=== PATIENT | female | born 1945 | race Caucasian/White ===

== ENCOUNTER 2017-12-17 16:52 | Emergency (ER) | payer MEDICARE ==
[~2017-12-17] VITALS: Ht 154.9 cm; Wt 74.8 kg
[~2017-12-17 16:52] MED LIST: ASPI81TA44 PO; ATOR10TA60 PO; LISI-334 PO; MECL25TA PO; NIFE60TA16 PO; unknown BP med
--- NOTE | 2017-12-17 17:32 | ED.ADGEN ---
Past History Past Medical History: Diabetes, Gallstones, High Cholesterol, Hypertension, Other Past Surgical History: Appendectomy, Cholecystectomy Alcohol Use: None Drug Use: None Adult General Chief Complaint Chief Complaint " I got this chest pain here.. I ve had it off and on past month or so... " HPI HPI Patient is a 72 year old female who presents with above hx and complaints of Rib pain. Patient denies any trauma. Patient denies any travel. Patient denies any specific ill contacts. No recent cough. Pain appears to be reproducible on anterior lower anterior axillary lines with palpation.. No spleen or liver tenderness. Patient normally follows with Dr. Prasad. No recent travel. No history of blood clots or DVTs. Patient does have a history of diabetes and hypertension. Review of Systems Review of Systems Constitutional: Denies fever or chills [] Eyes: Denies change in visual acuity, redness, or eye pain [] HENT: Denies nasal congestion or sore throat [] Respiratory: Denies cough or shortness of breath []complaints of chest wall tenderness Cardiovascular: No additional information not addressed in HPI [] GI: Denies abdominal pain, nausea, vomiting, bloody stools or diarrhea [] : Denies dysuria or hematuria [] Musculoskeletal: Denies back pain or joint pain [] Integument: Denies rash or skin lesions [] Neurologic: Denies headache, focal weakness or sensory changes [] Endocrine: Denies polyuria or polydipsia [] All other systems were reviewed and found to be within normal limits, except as documented in this note. Family History Family History Noncontributory diabetes and hypertension Current Medications Current Medications Current Medications Medications (Trade) Dose Ordered Sig/Braden Start Time Stop Time Status Last Admin Dose Admin Aspirin (Children'S Aspirin) 324 mg 1X ONCE 12/17/17 18:15 12/17/17 19:36 DC Sodium Chloride 1,000 ml @ 1,000 mls/hr Q1H 12/17/17 18:15 12/17/17 19:14 DC 12/17/17 18:57 1,000 MLS/HR See nursing for home meds Allergies Allergies Allergies Coded Allergies Type Severity Reaction Last Updated Verified No Known Drug Allergies 10/25/16 No Physical Exam Physical Exam Constitutional: \\, no acute distress, non-toxic appearance. [] HENT: Normocephalic, atraumatic, bilateral external ears normal, oropharynx moist, no oral exudates, nose normal. Fever blister on right lower lip. Eyes: PERRLA, EOMI, conjunctiva normal, no discharge. [] Glasses Neck: Normal range of motion, no tenderness, supple, no stridor. [] Cardiovascular:Heart rate regular rhythm, no murmur [] Lungs & Thorax: Bilateral breath sounds equal at apexes on auscultation [Has the minimal chest wall tenderness anterior axillary line bilaterally . History of present illness Abdomen: Bowel sounds normal, soft, no tenderness, no masses, no pulsatile masses. [] Old surgery scars. Skin: Warm, dry, no erythema, no rash. [] Back: No tenderness, no CVA tenderness. [] Extremities: No tenderness, no cyanosis, no clubbing, ROM intact, no edema. No cording in legs Neurologic: Alert and oriented X 3, normal motor function, normal sensory function, no focal deficits noted. [] Psychologic: Affect anxious, judgement normal, mood normal. [] Current Patient Data Vital Signs Vital Signs Date Time Temp Pulse Resp B/P (MAP) Pulse Ox O2 Delivery O2 Flow Rate FiO2 12/17/17 17:25 98.7 97 22 99 Room Air Lab Results Laboratory Tests Test 12/17/17 17:59 12/17/17 18:00 12/17/17 18:50 12/17/17 19:45 Urine Collection Type Unknown Urine Color Yellow Urine Clarity Hazy Urine pH 5.0 Urine Specific [place] 1.020 Urine Protein 30 mg/dl (NEG-TRACE) Urine Glucose (UA) >=1000 mg/dL (NEG) Urine Ketones (Stick) Neg mg/dL (NEG) Urine Blood Neg (NEG) Urine Nitrite Neg (NEG) Urine Bilirubin Neg (NEG) Urine Urobilinogen Dipstick 0.2 mg/dL (0.2 mg/dL) Urine Leukocyte Esterase Neg (NEG) Urine RBC Occ /HPF (0-2) Urine WBC 1-4 /HPF (0-4) Urine Squamous Epithelial Cells Mod /LPF Urine Bacteria Few /HPF (0-FEW) Urine Mucus Slight /LPF Urine Opiates Screen Neg (NEG) Urine Methadone Screen Neg (NEG) Urine Barbiturates Neg (NEG) Urine Phencyclidine Screen Neg (NEG) Urine Amphetamine/Methamphetamine Neg (NEG) Urine Benzodiazepines Screen Neg (NEG) Urine Cocaine Screen Neg (NEG) Urine Cannabinoids Screen Neg (NEG) Urine Ethyl Alcohol Neg (NEG) White Blood Count 7.5 x10^3/uL (4.0-11.0) Red Blood Count 5.89 x10^6/uL (3.50-5.40) H Hemoglobin 15.8 g/dL (12.0-15.5) H Hematocrit 47.9 % (36.0-47.0) H Mean Corpuscular Volume 81 fL (79-100) Mean Corpuscular Hemoglobin 27 pg (25-35) Mean Corpuscular Hemoglobin Concent 33 g/dL (31-37) Red Cell Distribution Width 13.8 % (11.5-14.5) Platelet Count 255 x10^3/uL (140-400) Neutrophils (%) (Auto) 64 % (31-73) Lymphocytes (%) (Auto) 27 % (24-48) Monocytes (%) (Auto) 7 % (0-9) Eosinophils (%) (Auto) 1 % (0-3) Basophils (%) (Auto) 1 % (0-3) Neutrophils # (Auto) 4.8 x10^3uL (1.8-7.7) Lymphocytes # (Auto) 2.0 x10^3/uL (1.0-4.8) Monocytes # (Auto) 0.6 x10^3/uL (0.0-1.1) Eosinophils # (Auto) 0.1 x10^3/uL (0.0-0.7) Basophils # (Auto) 0.1 x10^3/uL (0.0-0.2) Sodium Level 137 mmol/L (136-145) Potassium Level 4.0 mmol/L (3.5-5.1) Chloride Level 101 mmol/L (98-107) Carbon Dioxide Level 26 mmol/L (21-32) Anion Gap 10 (6-14) Blood Urea Nitrogen 19 mg/dL (7-20) Creatinine 0.9 mg/dL (0.6-1.0) Estimated GFR (Cockcroft-Gault) 61.9 Glucose Level 279 mg/dL (70-99) H Calcium Level 9.4 mg/dL (8.5-10.1) Magnesium Level 1.8 mg/dL (1.8-2.4) Total Bilirubin 0.3 mg/dL (0.2-1.0) Direct Bilirubin 0.1 mg/dL (0.0-0.2) Aspartate Amino Transferase (AST) 27 U/L (15-37) Alanine Aminotransferase (ALT) 24 U/L (14-59) Alkaline Phosphatase 152 U/L (46-116) H Creatine Kinase 30 U/L (26-192) Creatine Kinase MB (Mass) < 0.5 ng/mL (0.0-3.6) Creatine Kinase MB Relative Index 1.7 % (0-4) Troponin I Quantitative < 0.017 ng/mL (0-0.055) LJ-Yby-C-Type Natriuretic Peptide 72 pg/mL (0-124) Total Protein 6.6 g/dL (6.4-8.2) Albumin 3.3 g/dL (3.4-5.0) L Lipase 269 U/L (73-393) Prothrombin Time 10.3 SEC (9.4-11.4) Prothrombin Time INR 1.0 (0.9-1.1) PTT 24 SEC (23-33) D-Dimer (Luz Maria) 0.51 mg/L (0.00-0.50) H EKG EKG I interpretation EKG shows a sinus rhythm at 83 bpm. Some findings consistent with LVH. No findings acute STEMI of contralateral changes in comparison to previous EKG on 11-10-1998 no acute changes[] Radiology/Procedures Radiology/Procedures My interpretation chest today shows no acute cardiopulmonary findings.[] Course & Med Decision Making Course & Med Decision Making Pertinent Labs and Imaging studies reviewed. (See chart for details). Pt. to take daily ASA. Follow up with primary. Return if any concerns. Pt. refuses admit for observation or further work up. Pt. exhibit UCAR capacity. Will follow up. [] Final Impression Final Impression 1. Rib/ Chest pain[] 2. DM 3. HTN Problems: Dragon Disclaimer Dragon Disclaimer This electronic medical record was generated, in whole or in part, using a voice recognition dictation system. CHRISS BRUNO MD Dec 17, 2017 17:32
[2017-12-17] MEDS ORDERED: IV NORMAL SALINE 1,000ML 1,000 ML IV SCH (18:15)
[2017-12-17] MEDS ORDERED: ASPIRIN 81 MG TAB.CHEW PO ONE (18:15)
[2017-12-17 18:19] LABS: BASO # 0.1 x10^3/uL (0.0-0.2); BASO % 1 % (0-3); EOS # 0.1 x10^3/uL (0.0-0.7); EOS % 1 % (0-3); HEMATOCRIT 47.9 % (36.0-47.0); HEMOGLOBIN 15.8 g/dL (12.0-15.5); LYMPH % 27 % (24-48); MEAN CORPUSCULAR HEMOGLOBIN 27 pg (25-35); MEAN CORPUSCULAR HGB CONC 33 g/dL (31-37); MEAN CORPUSCULAR VOLUME 81 fL (79-100); MONO # 0.6 x10^3/uL (0.0-1.1); MONO % 7 % (0-9); NEUT # 4.8 x10^3uL (1.8-7.7); NEUT % 64 % (31-73); PLATELET COUNT 255 x10^3/uL (140-400); RED BLOOD COUNT 5.89 x10^6/uL (3.50-5.40); RED CELL DISTRIBUTION WIDTH 13.8 % (11.5-14.5); WHITE BLOOD COUNT 7.5 x10^3/uL (4.0-11.0)
--- NOTE | 2017-12-17 18:25 | EKG ---
[address] [address] Test Date: 2017-12-17 Test Time: 18:20:05 Pat Name: KASHMIR RAPHAEL Department: Room: Gender: F [employer]: DEISI : 1945 Requested By: CHRISS BRUNO Order Number: [id number] Reading MD: Measurements Intervals [place] Rate: 83 P: 6 DE: 148 QRS: 10 QRSD: 72 T: 170 QT: 346 QTc: 412 Interpretive Statements SINUS RHYTHM LVH WITH REPOLARIZATION ABNORMALITY ABNORMAL ECG RI6.01 No previous ECG available for comparison
[2017-12-17 18:28] LABS: AMPHETAMINE/METHAMPHETAMINE NEG (NEG); BARBITURATES NEG (NEG); BENZODIAZEPINES NEG (NEG); CANNABINOIDS NEG (NEG); COCAINE NEG (NEG); METHADONE NEG (NEG); OPIATES NEG (NEG); PHENCYCLIDINE NEG (NEG)
[2017-12-17 18:39] LABS: BACTERIA,URINE FEW /HPF (0-FEW); BILIRUBIN,URINE NEG (NEG); CLARITY,URINE HAZY; COLOR,URINE YELLOW; GLUCOSE,URINE >=1000 mg/dL (NEG); NITRITE,URINE NEG (NEG); RBC,URINE OCC /HPF (0-2); SQUAMOUS EPITHELIAL CELL,UR MOD /LPF; UROBILINOGEN,URINE 0.2 mg/dL (0.2 mg/dL)
[2017-12-17 19:38] LABS: ALBUMIN 3.3 g/dL (3.4-5.0); ALK PHOS 152 U/L (46-116); ALT (SGPT) 24 U/L (14-59); ANION GAP 10 (6-14); AST (SGOT) 27 U/L (15-37); BLOOD UREA NITROGEN 19 mg/dL (7-20); CALCIUM 9.4 mg/dL (8.5-10.1); CARBON DIOXIDE 26 mmol/L (21-32); CHLORIDE 101 mmol/L (98-107); CREATININE 0.9 mg/dL (0.6-1.0); DIRECT BILIRUBIN 0.1 mg/dL (0.0-0.2); GFR 61.9; GLUCOSE 279 mg/dL (70-99); LIPASE 269 U/L (73-393); MAGNESIUM 1.8 mg/dL (1.8-2.4); SODIUM 137 mmol/L (136-145); TOTAL BILIRUBIN 0.3 mg/dL (0.2-1.0); TOTAL PROTEIN 6.6 g/dL (6.4-8.2)
[2017-12-17 20:30] VITALS: BP 196/82
--- NOTE | 2017-12-18 07:53 | RAD ---
Chest radiograph 12/17/2017 8:10 PM Indication: Chest pain Comparison: Chest radiograph 10/25/2016 Technique: PA and lateral views of the chest are provided. Findings: Cardiomediastinal silhouette is within normal limits. Mild atherosclerotic changes of the thoracic aorta are present. There is a calcified granuloma in the right upper lobe. No pleural effusions, pulmonary vascular congestion or pneumothorax. The lungs are clear. Mild degenerative changes of the thoracic spine are present. Impression: No acute cardiopulmonary process.
== END 2017-12-17 20:40 | disposition home or self-care (01) ==
LOC: ER 16:52
DX: R07.81 Pleurodynia (principal); E11.9 Type 2 diabetes mellitus without complications; E78.00 Pure hypercholesterolemia, unspecified; I10 Essential (primary) hypertension
CPT/HCPCS: 36415; 71046; 80048; 80076; 80307; 81001; 82553; 83690; 83735; 83880; 84443; 84484; 85025; 85379; 85610; 85730; 93005; 96360; 99285-25; G0479; J7030

== ENCOUNTER → 2018-01-17 | Outpatient (CLI) | payer MEDICARE, BC ==
--- NOTE | 2018-01-17 13:56 | RAD ---
Chest, 2 views, 01/17/2018: History: Cough Comparison is made to a study from 12/17/2017. The heart size and pulmonary vascularity are normal. There is calcific plaquing and tortuosity of the thoracic aorta. A calcified granuloma is present in the right upper lobe. No pulmonary infiltrate is seen. There is no evidence of pleural fluid. Moderate spurring is present in the spine. IMPRESSION: 1. Aortic atherosclerosis. 2. No acute cardiopulmonary abnormality is detected.
== END | disposition home or self-care (01) ==
LOC: PMG 11:52
PROVIDERS: ATTEND Nurse Practitioner Family
DX: I70.0 Atherosclerosis of aorta (principal); J84.10 Pulmonary fibrosis, unspecified; I12.9 Hypertensive chronic kidney disease with stage 1 through stage 4 chronic kidney disease, or unspecified chronic kidney disease; E11.21 Type 2 diabetes mellitus with diabetic nephropathy; N18.9 Chronic kidney disease, unspecified; E78.00 Pure hypercholesterolemia, unspecified
CPT/HCPCS: 71046

== ENCOUNTER → 2018-05-27 | Outpatient (CLI) | payer MEDICARE, BC ==
[~2018-05-27] MED LIST changes: -ASPI81TA44 PO; +ASPI81TA59 PO
--- NOTE | 2018-05-27 17:22 | RAD ---
EXAM: 3 views left knee DATE: 05/27/2018 8:35 AM INDICATION: lt knee pain fall 1 week ago COMPARISON: No Prior FINDINGS: Decreased bone mineral density. No evidence of acute fracture or dislocation. Small left knee joint effusion. Patellar enthesopathy. Focal ossification at the proximal posterior tibial shaft possibly from ossification of interosseous membrane or soleal line. IMPRESSION: 1. Small left knee joint effusion without definite evidence for acute fracture or dislocation. Electronically signed by: Colt Clay MD (05/27/2018 5:18 PM) [facility]
== END | disposition home or self-care (01) ==
LOC: PMG 08:21
PROVIDERS: ATTEND Physician Assistant Medical
DX: M25.462 Effusion, left knee (principal); I12.9 Hypertensive chronic kidney disease with stage 1 through stage 4 chronic kidney disease, or unspecified chronic kidney disease; E11.22 Type 2 diabetes mellitus with diabetic chronic kidney disease; N18.9 Chronic kidney disease, unspecified; E87.6 Hypokalemia; K21.9 Gastro-esophageal reflux disease without esophagitis; Z90.710 Acquired absence of both cervix and uterus; Z90.49 Acquired absence of other specified parts of digestive tract; Z82.49 Family history of ischemic heart disease and other diseases of the circulatory system
CPT/HCPCS: 73562

== ENCOUNTER → 2018-06-24 | Outpatient (CLI) | payer MEDICARE, BC ==
[~2018-06-24] MED LIST changes: +LISINOPRIL 20 MG TABLET PO ONE; +LISINOPRIL 20 MG TABLET PO SCH; +REGADENOSON 0.4 MG/5 ML DISP.SYRIN. IV ONE; +amLODIPine BESYLATE 10 MG TABLET PO SCH
--- NOTE | 2018-06-24 09:59 | CARD ---
MR#: [id number] Date of Study: 06/24/2018 Ordering Physician: ODESSA NIX, Referring Physician: ODESSA NIX, Tech: Sonia Farrell APPROVED REPORT EXAM: Two-dimensional and M-mode echocardiogram with Doppler and color Doppler. Other Information Quality : FairHR: 72bpm INDICATION Dyspnea 2D DIMENSIONS RVDd2.3 (2.9-3.5cm)Left Atrium(2D)2.8 (1.6-4.0cm) IVSd1.3 (0.7-1.1cm)Aortic Root(2D)3.3 (2.0-3.7cm) LVDd4.5 (3.9-5.9cm)LVOT Diameter2.0 (1.8-2.4cm) PWd1.3 (0.7-1.1cm)LVDs2.2 (2.5-4.0cm) FS (%) 51.7 %SV77.5 ml LVEF(%)83.0 (>50%) Aortic Valve AoV Peak Garrett.133.4cm/sAoV VTI26.4cm AO Peak GR.7.1mmHgLVOT Peak Garrett.130.0cm/s LVOT VTI 25.79cmAO Mean GR.4mmHg TEVIN (VMAX)3.05xx8NAC (VTI)3.09cm2 Mitral Valve MV E Rqkjjiqq22.9cm/sMV DECEL [id number] MV A Uthljhys90.1cm/sE/A Ratio0.7 Pulmonary Vein S1 Qvsfcdzu57.7cm/sD2 Hojpoxuh10.5cm/s LEFT VENTRICLE The left ventricle is normal size. There is borderline concentric left ventricular hypertrophy. The l eft ventricular systolic function is normal. The Ejection Fraction is 65-70%. There is normal LV segm ental wall motion. Transmitral Doppler flow pattern is Grade I-abnormal relaxation pattern. RIGHT VENTRICLE The right ventricle is normal size. There is normal right ventricular wall thickness. The right ventr icular systolic function is normal. ATRIA The left atrium size is normal. The right atrium size is normal. The interatrial septum is intact wit h no evidence for an atrial septal defect or patent foramen ovale as noted on 2-D or Doppler imaging. AORTIC VALVE The aortic valve is thickened but opens well. Doppler and Color Flow revealed no significant aortic r egurgitation. There is no significant aortic valvular stenosis. MITRAL VALVE The mitral valve is mildly thickened. There is no mitral valve stenosis. Doppler and Color-flow revea led trace mitral regurgitation. TRICUSPID VALVE The tricuspid valve is normal in structure and function. Doppler and Color Flow revealed no tricuspid valve regurgitation noted. There is no tricuspid valve stenosis. PULMONIC VALVE Doppler and Color Flow revealed no pulmonic valvular regurgitation. GREAT VESSELS The aortic root is normal in size. Normal pulmonary venous flow (Doppler). The IVC was not visualized . PERICARDIAL EFFUSION There is no evidence of significant pericardial effusion. Critical Notification Critical Value: No <Conclusion> The left ventricular systolic function is normal. The Ejection Fraction is 65-70%. There is normal LV segmental wall motion. Transmitral Doppler flow pattern is Grade I-abnormal relaxation pattern. Doppler and Color-flow revealed trace mitral regurgitation. There is no evidence of significant pericardial effusion. Signed by : Aaron Hyman, Electronically Approved : 06/24/2018 09:58:50
[2018-06-24 11:08] VITALS: BP 220/90
--- NOTE | 2018-06-24 14:26 | RAD ---
MR#: [id number] Date of Study: 06/24/2018 Ordering Physician: ODESSA NIX, Referring Physician: SHABBIR PONCE Tech: LAILA Tidwell ARRT (R) (N) APPROVED REPORT Test Type: Pharmacological Stress Nurse/Tech: KATYA Mccollum/KINZA Tidwell Test Indications: dyspnea Cardiac History: Family history, Hypertension, Diabetes Medications: Amlodipine, Lisinopril Medical History: See Electronic Medical Record Resting ECG: SR Resting Heart Rate: 71 bpm Resting Blood Pressure: 228/98mmHg Pretest Chest Pain: None Nurse/Tech Notes Consent: The procedure was explained to the patient in lay terms. Informed consent was witnessed. Alfredo eout was entered into 7digital. History and Stress Test performed by LAILA Tidwell ARRT (R) (N) Pharm. Details Pharmacologic stress testing was performed using 0.4mg per 5ml of regadenoson given intravenously ove r 7-10 seconds. Stress Symptoms Dyspnea POST EXERCISE Reason for Termination: Infusion complete Target HR: No Max HR: 95 bpm 75% of Maximum Predicted HR: 126 bpm Exercise duration: 6 min:sec, Stage Max Blood Pressure: 220/90mmHg Blood Pressure response to exercise: Abnormal blood pressure response during stress. Chest Pain: No. Arrhythmia: No. INTERPRETATION Stress EKG Conclusion: Baseline EKG showed sinus rhythm. Non diagnostic changes at peak stress. No arrhythmias. Imaging Protocol IMAGE PROTOCOL: Rest Tc-99m/stress Tc-99m 1 day Rest: Stress: Viability: Radiopharm.Tc99m JlmzqcktxZq95s Sestamibi Owzc41sCl 33mCi Img Date 06/24/2018 06/24/2018 Inj-Img Shqi31chu. 90min. Rest Admin Site:IV - Right HandAdministrator: LAILA Tidwell ARRT (R)(N) Stress Admin Site: IV - Right HandAdministrator: LAILA Tidwell ARRT (Star)(N) STRESS DATA End Diast. Vol.42.0mlAv. Heart Rate75.0bpm LVEDV index BSA1.0mlCardiac Output0.1L/min End Syst. Vol.2.0mlCO Index BSA3.0L/min LVESV index BSA0.0mlMyocardial Mass91.0g Eject. Atyrxpdx89.0% Stress Rates Pk. Fill Rate2.28EDV/secLVtime Pk. Fill 212.35msec Pk. Empty Rate4.68ESV/secLVtime Pk. Nantw842.33msec 1/3 Pk. Fill1.53EDV/sec Stress Scores Regional WT1.00Summed WT2.00 Regional WM0.00Summed WM0.00 Study quality was good. Left Ventricular size was Normal at Rest and Stress. Lung uptake was . Left Ventricular ejection fraction is >80%. The rest and stress images show normal perfusion, normal contraction and thickening. LV Perf. Quant 17 Seg. SSS0.00 17 Seg. SRS0.00 17 Seg. SDS0.00 Stress Defect Extent (% LAD)0.00Rest Defect Extent (% LAD)0.00Rev. Defect Extent (% LAD)0.00 Stress Defect Extent (% LCX) 0.00Rest Defect Extent (% LCX)0.00Rev. Defect Extent (% LCX)0.00 Stress Defect Extent (% RCA)0.00Rest Defect Extent (% RCA)0.00Rev. Defect Extent (% RCA)0.00 Stress Defect Extent (% ASHLEY)0.00Rest Defect Extent (% ASHLEY)0.00Rev. Defect Extent (% ASHLEY)0.00 Conclusion 1. Regadenoson cardioisotope stress test did not show any evidence of ischemia or infarct. 2. Normal left ventricular systolic function with ejection fraction calculated at >80%. 3. Low risk for cardiac events. Signed by : Aaron Hyman, Electronically Approved : 06/24/2018 14:24:51
== END | disposition home or self-care (01) ==
LOC: ECHO 07:34
PROVIDERS: ATTEND Internal Medicine Cardiovascular Disease
DX: R06.00 Dyspnea, unspecified (principal); I12.9 Hypertensive chronic kidney disease with stage 1 through stage 4 chronic kidney disease, or unspecified chronic kidney disease; E11.22 Type 2 diabetes mellitus with diabetic chronic kidney disease; N18.9 Chronic kidney disease, unspecified; K21.9 Gastro-esophageal reflux disease without esophagitis; E78.00 Pure hypercholesterolemia, unspecified; Z90.49 Acquired absence of other specified parts of digestive tract; Z90.710 Acquired absence of both cervix and uterus; Z82.49 Family history of ischemic heart disease and other diseases of the circulatory system; Z82.3 Family history of stroke
CPT/HCPCS: 78452; 93017; 93306; 96374; 96375; 96376; A9500; J2785

== ENCOUNTER → 2018-06-24 | Outpatient (CLI) | payer MEDICARE, BC ==
[~2018-06-24] MED LIST changes: -LISINOPRIL 20 MG TABLET PO ONE; -LISINOPRIL 20 MG TABLET PO SCH; -REGADENOSON 0.4 MG/5 ML DISP.SYRIN. IV ONE; -amLODIPine BESYLATE 10 MG TABLET PO SCH
[2018-06-24 08:00] LABS: CALCIUM 9.1 mg/dL (8.5-10.1); CREATININE 1.1 mg/dL (0.6-1.0); POTASSIUM 3.6 mmol/L (3.5-5.1)
== END | disposition home or self-care (01) ==
LOC: LAB 07:25
PROVIDERS: ATTEND Internal Medicine Cardiovascular Disease
DX: I12.9 Hypertensive chronic kidney disease with stage 1 through stage 4 chronic kidney disease, or unspecified chronic kidney disease (principal); E11.22 Type 2 diabetes mellitus with diabetic chronic kidney disease; N18.9 Chronic kidney disease, unspecified; E78.00 Pure hypercholesterolemia, unspecified; K21.9 Gastro-esophageal reflux disease without esophagitis; Z90.49 Acquired absence of other specified parts of digestive tract; Z90.710 Acquired absence of both cervix and uterus; Z82.3 Family history of stroke; Z82.49 Family history of ischemic heart disease and other diseases of the circulatory system
CPT/HCPCS: 36415; 80048

== ENCOUNTER → 2018-09-02 | Outpatient (CLI) | payer MEDICARE, BC ==
[2018-06-24 11:08] VITALS: BP 220/90
[~2018-09-02] MED LIST changes: +IOHEXOL 240 MG/ML 50ML VIAL. PO ONE; +IOHEXOL 300 MG/ML 75 ML VIAL. IV ONE
[2018-09-02 11:21] LABS: CREATININE 0.9 mg/dL (0.6-1.0); GFR 61.7
--- NOTE | 2018-09-02 16:34 | RAD ---
PQRS Compliance statement: One or more of the following individualized dose reduction techniques were utilized for this examination: 1. Automated exposure control. 2. Adjustment of the mA and/or kV according to patient size. 3. Use of iterative reconstruction technique. Indication:REFLUX, ABDOMINAL PAIN, DIABETIC. OMNI 300 75ML, OMNI 240 30ML IN BREEZA TECHNIQUE: CT abdomen and pelvis with IV contrast with multiplanar reformats. COMPARISON: None FINDINGS: Heart is normal in size. No pericardial or pleural effusion. Clear lung bases. Liver is top normal in size. Diffuse hepatic steatosis without focal hepatic lesion. Calcified granuloma seen in the spleen. Status post cholecystectomy. Pancreas and right adrenal within normal limits. Fat-containing left adrenal nodule is seen measuring 1.9 x 1.7 cm. Multiple bilateral low attenuating lesions are seen in the kidneys, the largest on the right side measuring 2.3 cm and on the left side measuring 3.1 cm compatible with simple cysts. No nephrolithiasis or hydronephrosis. Small sliding hiatal hernia. Wall thickening is seen in the region of gastric cardia measuring 2.6 cm. No bowel obstruction. No free pelvic fluid or ascites. No enlarged retroperitoneal or pelvic adenopathy. Mild diffuse atherosclerotic disease of the abdominal aorta. Status post hysterectomy. Moderate-sized cystocele noted with the base of the bladder lying 3.4 cm below the pubic coccygeal line. Urinary bladder demonstrates no radiopaque stones. Small omental fat-containing umbilical and supraumbilical hernia noted with neck of the hernia measuring approximately 1.1 cm. The hernia sac measures approximately 4.1 x 1.1 cm. No suspicious bony lesion. IMPRESSION: 1. Hepatic steatosis. 2. Small sliding hiatal hernia with gastric wall thickening in the region of gastric cardia. Clinically correlate with EGD. 3. Evidence of pelvic floor relaxation with small cystocele. 4. Multiple bilateral simple appearing renal cysts. . Electronically signed by: Jimy Atkins DO (09/02/2018 4:30 PM) [facility]
== END | disposition home or self-care (01) ==
LOC: CT 10:10
PROVIDERS: ATTEND Family Medicine
DX: K76.0 Fatty (change of) liver, not elsewhere classified (principal); K44.9 Diaphragmatic hernia without obstruction or gangrene; N81.10 Cystocele, unspecified; D73.89 Other diseases of spleen; I10 Essential (primary) hypertension; E11.9 Type 2 diabetes mellitus without complications; I25.10 Atherosclerotic heart disease of native coronary artery without angina pectoris; Z90.710 Acquired absence of both cervix and uterus; Z90.49 Acquired absence of other specified parts of digestive tract
CPT/HCPCS: 36415; 74177; 82565; Q9966; Q9967

== ENCOUNTER 2020-08-16 10:21 | Inpatient (IN) | payer MEDICARE, BC ==
[2020-08-16] VITALS (10 sets, daily range): BP systolic 113–175; BP diastolic 57–103
[~2020-08-16] VITALS: Ht 154.9 cm; Wt 75.5 kg
[~2020-08-16 10:21] MED LIST changes: -IOHEXOL 240 MG/ML 50ML VIAL. PO ONE; -IOHEXOL 300 MG/ML 75 ML VIAL. IV ONE; -NIFE60TA16 PO; +NIFE60TA90 PO
--- NOTE | 2020-08-16 10:58 | RAD ---
CT HEAD WO CONTRAST Date: 08/16/2020 10:31 AM Clinical Indication: AMS Comparison: None. Technique: 5 mm axial tomographic images were obtained of the head without contrast. These were viewed on brain and bone windows. One or more of the following dose reduction techniques were utilized: Automated exposure control (AEC), Adjustment of mA and/or kV according to patient size, Use of iterative reconstruction technique such as ASiR, CT scan done according to ALARA and image gently/image wisely Findings: The brain parenchyma is normal in attenuation. No intra- or extra-axial mass or fluid collection. No acute hemorrhage. The ventricles are normal in size, shape, and morphology. The torrez-white matter junction is normal. The subarachnoid cisterns are patent. The visualized paranasal sinuses are normal. The visualized portions of the orbits and globes are normal. The mastoid air cells are clear. The night time nanny topogram shows no lytic lesion or fracture. Impression: No acute intracranial process. Electronically signed by: Juan Rosas MD (08/16/2020 10:55 AM) [id number]
--- NOTE | 2020-08-16 10:58 | RAD ---
EXAM: Chest, single view. HISTORY: Altered mental status COMPARISON: 01/17/2018 FINDINGS: A frontal view of the chest is obtained. There is no infiltrate, protrusion or pneumothorax. The heart is normal in size. There are calcified granulomas. IMPRESSION: No acute pulmonary finding. Electronically signed by: Hui Beckman MD (08/16/2020 10:56 AM) [id number]
--- NOTE | 2020-08-16 11:06 | PHYS DOC ---
Past History Past Medical History: Diabetes, Gallstones, High Cholesterol, Hypertension, Other Past Surgical History: Appendectomy, Cholecystectomy Alcohol Use: None Drug Use: None General Adult EDM: Chief Complaint: NEURO SYMPTOMS/DEFICITS HPI: HPI: 75-year-old female presents with left-sided weakness. She was last known well last night. She woke up around 4 AM, 7 hours ago and noticed that she could not stand up due to left-sided weakness. She further realized that her left arm was also weaker than her right arm. She tells me that she cannot walk at this time. She is able to lift her legs off the bed but cannot maintain it. Her left arm has drift. She feels like she is able to talk without difficulty. She does not know if her face is symmetrical. No history of TIA or stroke. She lives at home alone. Review of Systems: Review of Systems: Constitutional: Denies fever or chills Eyes: Denies change in visual acuity HENT: Denies nasal congestion or sore throat Respiratory: Denies cough or shortness of breath Cardiovascular: Denies chest pain or edema GI: Denies abdominal pain, nausea, vomiting, bloody stools or diarrhea : Denies dysuria Musculoskeletal: Denies back pain or joint pain Integument: Denies rash Neurologic: Left-sided weakness of upper and lower extremity Endocrine: Denies polyuria or polydipsia Lymphatic: Denies swollen glands Psychiatric: Denies depression or anxiety Allergies: Allergies: Allergies Coded Allergies Type Severity Reaction Last Updated Verified No Known Drug Allergies 10/25/16 No Physical Exam: PE: Constitutional: Well developed, well nourished, obese, no acute distress, non- toxic appearance. [] HENT: Normocephalic, atraumatic, bilateral external ears normal, oropharynx moist, no oral exudates, nose normal. [] Eyes: PERRLA, EOMI, conjunctiva normal, no discharge. [] Neck: Normal range of motion, no tenderness, supple, no stridor. [] Cardiovascular: Heart rate regular rhythm, no murmur [] Lungs & Thorax: Bilateral breath sounds clear to auscultation [] Abdomen: Bowel sounds normal, soft, no tenderness, no masses, no pulsatile masses. [] Skin: Warm, dry, no erythema, no rash. [] Back: No tenderness, no CVA tenderness. [] Extremities: No tenderness, no cyanosis, no clubbing, ROM intact, no edema. [] Neurologic: Alert and oriented x3. See NIH stroke scale [] Psychologic: Affect normal, judgement normal, mood normal. [] EKG: EKG: Sinus rhythm, rate 87, normal axis, no ST elevation or depression. Prolonged QTC, flat T waves. [] Radiology/Procedures: Radiology/Procedures: [] Impressions: CT HEAD WO CONTRAST Date: 08/16/2020 10:31 AM Clinical Indication: AMS Comparison: None. Technique: 5 mm axial tomographic images were obtained of the head without contrast. These were viewed on brain and bone windows. One or more of the following dose reduction techniques were utilized: Automated exposure control (AEC), Adjustment of mA and/or kV according to patient size, Use of iterative reconstruction technique such as ASiR, CT scan done according to ALARA and image gently/image wisely Findings: The brain parenchyma is normal in attenuation. No intra- or extra-axial mass or fluid collection. No acute hemorrhage. The ventricles are normal in size, shape, and morphology. The torrez-white matter junction is normal. The subarachnoid cisterns are patent. The visualized paranasal sinuses are normal. The visualized portions of the orbits and globes are normal. The mastoid air cells are clear. The mental health counselor topogram shows no lytic lesion or fracture. Impression: No acute intracranial process. Electronically signed by: Alana Rosas MD (08/16/2020 10:55 AM) [id number] DICTATED AND SIGNED BY: ALANA ROSAS MD DATE: 08/16/20 1055 CC: JAKE COREA DO; MISTY FRY MD ~ Heart Score: Risk Factors: Risk Factors: DM, Current or recent (<one month) smoker, HTN, HLP, family history of CAD, obesity. Risk Scores: Score 0 - 3: 2.5% MACE over next 6 weeks - Discharge Home Score 4 - 6: 20.3% MACE over next 6 weeks - Admit for Clinical Observation Score 7 - 10: 72.7% MACE over next 6 weeks - Early Invasive Strategies Course & Med Decision Making: Course & Med Decision Making Pertinent Labs and Imaging studies reviewed. (See chart for details) The patient's head CT is negative. Her initial NIH is 3. She has some borderline labs but nothing of great significance. Her blood sugar is elevated. See labs for more details. I spoke with Dr. Laurent about the patient and he has accepted her for admission. He has requested Plavix and aspirin. She will go to the ICU. [] Dragon Disclaimer: Dragon Disclaimer: This electronic medical record was generated, in whole or in part, using a voice recognition dictation system. NIH Stroke Scale: NIH Stroke Scale Response (Comments) Value Level of Consciousness: 0 Alert/Responsive 0 LOC Questions: 0 Answers both correctly 0 LOC Commands: 0 Performs both tasks 0 Best Gaze: 0 Normal 0 Facial Palsy: 0 Normal, symmetrical 0 Motor - Left Arm 1 Drifts, but can hold 1 Motor - Right Arm 0 No drift 0 Motor - Left Leg 1 Drift but can hold 1 Motor: Right Leg 0 No drift 0 Limb Ataxia: 0 Absent 0 Sensory: 1 Mid to moderate loss 1 Best Language: 0 Normal 0 Dysathria: 0 Normal 0 Extinction and Inattention: 0 Normal 0 Total 3 Departure Departure: Impression: Primary Impression: TIA (transient ischemic attack) Additional Impression: Left-sided weakness Admitting Physician: Tucker Laurent Condition: STABLE Referrals: MISTY FRY MD (PCP) JAKE COREA DO Aug 16, 2020 11:06
[2020-08-16 11:22] LABS: BASO % 1 % (0-3); EOS % 0 % (0-3); HEMATOCRIT 50.4 % (36.0-47.0); LYMPH # 0.9 x10^3/uL (1.0-4.8); LYMPH % 12 % (24-48); MEAN CORPUSCULAR HEMOGLOBIN 27 pg (25-35); MEAN CORPUSCULAR HGB CONC 32 g/dL (31-37); MEAN CORPUSCULAR VOLUME 85 fL (79-100); MONO # 0.2 x10^3/uL (0.0-1.1); MONO % 3 % (0-9); NEUT # 6.1 x10^3uL (1.8-7.7); NEUT % 84 % (31-73); PLATELET COUNT 228 x10^3/uL (140-400); RED BLOOD COUNT 5.92 x10^6/uL (3.50-5.40); RED CELL DISTRIBUTION WIDTH 13.9 % (11.5-14.5); WHITE BLOOD COUNT 7.3 x10^3/uL (4.0-11.0)
[2020-08-16 11:27] LABS: CALCIUM 10.2 mg/dL (8.5-10.1); CREATININE 1.1 mg/dL (0.6-1.0); GFR 48.7; POTASSIUM 3.9 mmol/L (3.5-5.1)
--- NOTE | 2020-08-16 11:31 | EKG ---
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
[2020-08-16 11:33] LABS: ALBUMIN 3.5 g/dL (3.4-5.0); ALBUMIN/GLOBULIN RATIO 0.9 (1.0-1.7); TOTAL BILIRUBIN 0.3 mg/dL (0.2-1.0); TOTAL PROTEIN 7.6 g/dL (6.4-8.2)
[2020-08-16 12:38] LABS: BACTERIA,URINE FEW /HPF (0-FEW); BILIRUBIN,URINE NEG (NEG); CLARITY,URINE CLEAR; COLOR,URINE YELLOW; GLUCOSE,URINE >=1000 mg/dL (NEG); NITRITE,URINE NEG (NEG); RBC,URINE 0 /HPF (0-2); SQUAMOUS EPITHELIAL CELL,UR MOD /LPF; UROBILINOGEN,URINE 0.2 mg/dL (0.2 mg/dL); WBC,URINE OCC /HPF (0-4)
[2020-08-16] MEDS ORDERED: ASPIRIN CHEWABLE 81 MG TABLET. PO ONE (12:45)
[2020-08-16] MEDS ORDERED: CLOPIDOGREL BISULFATE 75 MG TABLET PO ONE (12:45)
[2020-08-16] MEDS ORDERED: ONDANSETRON PF 4 MG/2 ML VIAL. IVP PRN (13:45)
[2020-08-16] MEDS ORDERED: ACETAMINOPHEN 325 MG TABLET PO PRN (13:45)
[2020-08-16] MEDS ORDERED: AMLO-187 PO (13:55)
[2020-08-16] MEDS ORDERED: INSU100I17 SQ (13:56)
[2020-08-16] MEDS ORDERED: INSU100V37 SQ (13:56)
--- NOTE | 2020-08-16 14:00 | HP ---
ADMIT DATE: 08/16/2020 ATTENDING PHYSICIAN: Dr. Pimentel. CHIEF COMPLAINT: Left-sided weakness. HISTORY OF PRESENT ILLNESS: The patient is a pleasant 75-year-old female admitted through the ED with new onset of left-sided weakness. She was well last night. She woke up around 4:00 a.m. Symptoms are at least 12 hours old. She could not stand due to left-sided weakness. She realized that her left arm was also weaker than the right side. She cannot lift herself and was quite dizzy. She has a left arm drift. She has some difficulty speaking, although by the time I saw her speech is improved. She does not know if her face is symmetrical. In the ED, she had a CT of the head, which showed no evidence of acute stroke or bleeds. Symptomatically, she was doing better. Her Quinn coma scale was not too abnormal. 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 Her speech was back to baseline. She has not had any previous heart attack or stroke. She does have risk factors. PAST MEDICAL HISTORY: Significant for essential hypertension, type 2 diabetes mellitus, gallstones, hyperlipidemia. PAST SURGICAL HISTORY: Appendectomy and cholecystectomy. ALLERGIES: She has no recorded drug allergies. SOCIAL HISTORY: She is a nonsmoker and nondrinker. CURRENT MEDICINES: Prescribed includes lisinopril. She was given 1 aspirin and a dose of Plavix in the ED. FAMILY HISTORY: Her mother of complications of a stroke at age 81. Father of heart disease at age 78. MEDICINES AT HOME: Includes lisinopril, meclizine, and children's aspirin. REVIEW OF SYSTEMS: Significant for the localized symptoms. She has not had previous stroke symptoms. She has not had any dysarthria. No recent COVID exposure. She denied any recent travel. She denied nausea, vomiting, headache, hematuria, cough, congestion. All other systems reviewed and turned to be negative. PHYSICAL EXAMINATION: GENERAL: When I saw her, this is a pleasant female. INITIAL VITAL SIGNS: Showed a blood pressure 178/96, pulse is 90 and regular. She was afebrile. HEENT: Head is without trauma. Pupils are reactive. Sclerae are nonicteric. The oropharynx is clear. NECK: Supple, no bruits identified. LUNGS: Otherwise, clear to auscultation. CARDIOVASCULAR: Showed regular heart tones. No gallops. Peripheral pulses are palpable and full. ABDOMEN: Obese, protuberant. No organomegaly. Bowel sounds are hypoactive. EXTREMITIES: Showed no cyanosis or edema. 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 It is weaker on the left side. She is unable to bear weight. She has a left sided pronator drift. Her speech is otherwise fluent. Her tongue is midline. There is no facial asymmetry. Her speech was fluent by the time I saw her. DIAGNOSTIC STUDIES: CT head and chest x-ray as noted. PERTINENT LABORATORY STUDIES: Her admission hemoglobin was 16.0 g/dL with white count of 7300. Electrolytes are within normal range. Creatinine is 1.1 mg/dL. Nonfasting blood sugar 262. Cardiac enzymes negative for coronary ischemia. ASSESSMENT: 1. A 75-year-old female with definite transient ischemic attack symptoms. By definition, she is not 24 hours out. Her deficits have improved and she is getting closer to baseline. 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 2. Type 2 diabetes mellitus. 3. Essential hypertension. 4. Degenerative arthritis. 5. History of vertigo. PLAN: 1. Admit to our ICU. 2. Aspirin and Plavix has been administered, will be continued daily. 3. Full Neurology consultation in the morning. 4. CT angiogram of her major vessels. 5. PT consult. 6. OT consult. 7. Speech consult. 8. Continue home meds. 9. Diabetic diet. JERSEY PIMENTEL MD DR: DILEEP/richard JOB#: [id number] / [id number] MISTY Dobbs MD
--- NOTE | 2020-08-16 14:08 | NUR ---
PATIENT ADMISSION: 75 y/o Female brought to ICU room2 by charley with EMS and ED staff. diagnosis is TIA with left sided weakness. Pt is A&O at this time. c/o left side weakness, left arm with slight drift and able to move both legs. c/o falling at home d/t weakness and unbalanced, & c/o dizziness. Per Dr Laurent, patient does not need to be NPO at this time can have ADA diet and thin liquids. During bedside swallow, pt did tolerate thin liquids without coughing or choking on fluids. Pt oriented to room and given written and verbal instructions of hospital policies and visitor policies. Medications reconcilled with pt and belongings with patient in room. PT/OT, speech, and neurology consults ordered by physician. DAT. Sarah FULLER
[2020-08-16] MEDS ORDERED: IOHEXOL 350 MG/ML 100 ML VIAL. IV ONE ×2 (14:15→15:30)
--- NOTE | 2020-08-16 15:55 | NUR ---
IV blew in Left chest during CTA of head/neck with contrast. swelling to area. Another IV placed, 20G, and second CTA done with no complications. Radiologist recommended follow with IV fluids and BMP in AM due to a lot of contrast dye and to apply pressure and ice to site. Dr Laurent notified. Ordered for BMP in morning but did not want IV fluids d/t BP being high. Sarah FULLER
--- NOTE | 2020-08-16 16:34 | RAD ---
EXAM: CT Angiogram of the Head and Neck INDICATION: Reason: TIA. left side weakness- IV INFILTRATION APPROX 50-75CC / Spl. Instructions: GFR 50, CREAT 1.1- ALREADY ORDERED CONTRAST / History: TECHNIQUE: CT images were obtained through the head per standard CTA protocol. Multiplanar and 3D reformatted images were generated from the CT dataset on an independent workstation. All CT scans performed at this facility utilize dose optimization techniques as appropriate to the exam, including the following: Automated exposure control and adjustment of the mA and/or KV according to patient size (this includes techniques or standardized protocols for targeted exams where dose is indication/reason for exam). Technologist reports that the IV infiltrated midway through the injection. IV CONTRAST: Administered COMPARISON: Noncontrast head CT of earlier the same day FINDINGS: There is suboptimal contrast bolus opacification of the arteries, still adequate CTA HEAD: No high-grade large vessel stenosis, proximal or branch vessel occlusion, aneurysm, or vascular malformation. ANTERIOR CIRCULATION: Anterior and middle cerebral arteries are widely patent. ANTERIOR COMMUNICATING ARTERY: Patent. POSTERIOR COMMUNICATING ARTERIES: Present bilaterally and patent. POSTERIOR CIRCULATION: Vertebral and basilar arteries are widely patent. Bilateral posterior inferior cerebellar arteries (PICAs), anterior inferior cerebellar arteries (AICAs), and superior cerebellar arteries (SCAs) are visualized and patent. OTHER: No abnormal brain parenchymal enhancement. The paranasal sinuses, mastoid air cells, and tympanic cavities are clear. NECK CTA: AORTA: 3 vessel configuration of arch. No dissection or acute aortic injury. No hemodynamically significant great vessel origin stenosis. RIGHT CAROTID: Common and internal carotid arteries are widely patent, without evidence of flow limiting stenosis or dissection. LEFT CAROTID: Common and internal carotid arteries are patent, without evidence of flow limiting stenosis or dissection. There is less than 50 percent stenosis in the distal left common carotid artery due to noncalcified plaque (image 232 of series 19). VERTEBRAL ARTERIES: Codominant. No evidence of dissection or flow limiting stenosis. SUBCLAVIAN ARTERIES:Subclavian arteries are patent without stenosis. SOFT TISSUES: Extensive infiltration of IV contrast into the patient's left chest wall anteriorly is present. Lung apices are clear. Where applicable, evaluation of ICA stenosis was performed using NASCET criteria, where the site of greatest stenosis is compared to the diameter of the ICA distal to the carotid bulb. IMPRESSION: Suboptimal contrast bolus opacification of the pulmonary arteries showing no significant pathology in the arteries of the head and neck. In particular, no evidence of flow-limiting stenosis, large vessel occlusion, aneurysm or arterial vascular malformation. Electronically signed by: Lisa Andrade MD (08/16/2020 4:31 PM) [facility]
[2020-08-16] MEDS: INSULIN LISPRO 300 UNITS/3 ML VIAL. SQ SCH (17:24)
[2020-08-16] MEDS ORDERED: cloNIDine TTS-3 1 PATCH PATCH TD SCH (18:15)
--- NOTE | 2020-08-16 18:15 | NUR ---
DR PIMENTEL CALLED AND NOTIFIED OF CONSISTENT HIGH BLOOD PRESSURES. LAST BP 175/103. ORDERED FOR CLONIDINE PATCH TT3. WCM
[2020-08-16] MEDS: INSULIN GLARGINE SYRINGE. SQ SCH (21:07)
[2020-08-17] VITALS (20 sets, daily range): BP systolic 111–165; BP diastolic 53–86
--- NOTE | 2020-08-17 06:05 | NUR ---
Pt is A&Ox4, pleasant and cooperative with assessments and cares. Pt with slurred speech, left sided arm/leg weakness and left facial droop noted mostly in mouth but stated that she feels it has improved. Pt leans to the left when sitting up in bed and will fall backwards if not supported. Pt had a few bites of yogurt at bedtime, ate independently. Pt talked on phone with family before bed. Pt slept good during night once turned "on my sleeping side". Pt up to BSC x1-2 assist with gait belt, left sided weakness in leg and arm noted. PT/OT/ST consulted. Pt with improved BP during night.
[2020-08-17 06:28] LABS: CALCIUM 9.6 mg/dL (8.5-10.1); CREATININE 1.1 mg/dL (0.6-1.0); GFR 48.7; POTASSIUM 3.9 mmol/L (3.5-5.1)
[2020-08-17] MEDS: amLODIPine BESYLATE 10 MG TABLET PO SCH (07:56)
[2020-08-17] MEDS: CLOPIDOGREL BISULFATE 75 MG TABLET PO SCH (07:56)
[2020-08-17] MEDS: ASPIRIN 325 MG TABLET PO SCH (07:56)
[2020-08-17] MEDS: INSULIN LISPRO 300 UNITS/3 ML VIAL. SQ SCH ×3 (07:57→17:41)
--- NOTE | 2020-08-17 10:17 | NUR ---
Patient reported to this RN that the [facility] Department called her and told her the results to her COVID-19 test have resulted negative. upholstery parts sorter Michelle informed and precautions removed.
--- NOTE | 2020-08-17 10:17 | CONS ---
DATE OF CONSULTATION: NEUROLOGY CONSULTATION REFERRING PHYSICIAN: Dr. Bishop/Dr. Laurent REASON FOR CONSULTATION: Acute left-sided weakness and speech difficulty. HISTORY OF PRESENT ILLNESS: This is a 75-year-old right-handed female. She was admitted to Emergency Room yesterday after she presented with at least 12 hours symptoms of new onset of left-sided weakness and difficulty to speak. According to the patient, she has been doing well the day before admission, but she woke up with severe left-sided weakness and difficulty to walk and get up of the chair. She has noticed left facial drooping as well and weakness of the left upper and lower extremities. She denies headaches, visual disturbances, chest pain, shortness of breath or palpitation, dysphagia, or vertigo. On arrival to Emergency Room, her blood pressure was 178/96. Initial nonenhanced head CT scan revealed no evidence of acute intracranial process. CT angio of the head revealed no abnormalities. CT angio of the neck revealed no significant stenosis or aneurysms. PAST MEDICAL HISTORY: Significant for hypertension, diabetes mellitus, hyperlipidemia, and gallstones. PAST SURGICAL HISTORY: Positive for appendectomy and cholecystectomy. SOCIAL HISTORY: The patient denies smoking, alcohol drinking, or illicit drug use. FAMILY HISTORY: Mother had stroke and at age of 81. Father had heart disease and at 78. CURRENT HOME MEDICATIONS: Include amlodipine 10 mg p.o. daily, Plavix 75 mg daily, aspirin 325 mg daily, insulin 20 units at bedtime, clonidine one patch weekly and insulin human lispro 10 units t.i.d. with meals subcutaneously. ALLERGIES: No known drug allergies. REVIEW OF SYSTEMS: A 10-point review of system was performed as mentioned above in history of present illness and consistent with left-sided weakness and dysarthria. PHYSICAL EXAMINATION: GENERAL: A well-developed, well-nourished female, not in acute distress. She weighs 76.2 kilos. VITAL SIGNS: Blood pressure 123/75, respiratory rate 16, pulse is 67 and regular, temperature is 97.8, and oxygen saturation 94% on room air. HEENT: Normocephalic, atraumatic, otherwise unremarkable. NECK: Supple. Negative for carotid bruit, lymphadenopathy or thyromegaly. LUNGS: Clear to A and P. CARDIOVASCULAR: Regular rhythm, normal S1, S2. There is 1/6 systolic murmur, nonradiating to the neck. ABDOMEN: Soft. Bowel sounds positive. EXTREMITIES: Negative for cyanosis, clubbing or edema. NEUROLOGICAL EXAM: Mental Status: The patient is alert and oriented x 3. The speech is dysarthric, no language dysfunction. Memory, judgment, and abstracting thinking are normal. The patient denies hallucination or delusion. CRANIAL NERVES: Pupils are equal and reactive to light and accommodation. The extraocular movements are intact. There is no nystagmus. There is a significant left facial asymmetry consistent with central type. Hearing is intact bilaterally. Palate is elevated symmetrically. Sternocleidomastoid muscles symmetric bilaterally. The patient protrudes her tongue in the midline without fasciculation. MOTOR: No focal muscle bulk was seen. The tone is normal. The patient has dense left hemiparesis including the face, arm and leg. Sensory examination revealed normal pinprick, light touch, vibratory and position senses. Deep tendon reflexes were hyperactive, more prominent on the left side with positive Babinski. LABORATORY DATA: CBC revealed white cells of 7.3 thousand, hemoglobin 16, hematocrit 50.4, and platelet count 228,000. Chemistry: Sodium 141, potassium 3.9, chloride 106, CO2 of 25, BUN 20, creatinine 1.1, glucose 149, calcium 9.6. Troponin level is normal. Urinalysis is negative for urinary tract infections. DIAGNOSTIC DATA: A CT angio of the head and neck as mentioned above in history of present illness. IMPRESSION: 1. Acute stroke, presented with dense left hemiparesis and dysarthria. The risk factors include age, hypertension, hyperlipidemia and diabetes mellitus along with family history of stroke. 2. Multiple medical problems include hypertension, diabetes mellitus, and hyperlipidemia. RECOMMENDATIONS: 1. Echocardiogram. 2. Lipid profile. 3. Aggressive physical and speech therapy. 4. We will add Lovenox subacute 40 mg daily. 5. The patient may need a brain MRI to confirm the right hemispheric infarct. M Jon GOMEZ MD DR: ELYSE/richard JOB#: [id number] / [id number]
[2020-08-17] MEDS: ENOXAPARIN 40 MG/0.4 ML SYRINGE. SQ SCH (10:22)
--- NOTE | 2020-08-17 11:31 | NUR ---
IP: confirmed with Michelle FULELR at [facility]. patient COVID test negative.
--- NOTE | 2020-08-17 12:53 | NUR ---
pt told this RN that she wanted me to throw away her undergarments because they were soiled. She stated she had plenty more at home. Sarah FULLER
--- NOTE | 2020-08-17 16:18 | CARD ---
MR#: [id number] Date of Study: 08/17/2020 Ordering Physician: Julia GOMEZ, Referring Physician: Julia GOMEZ, Tech: Tori Deluna RDCS APPROVED REPORT EXAM: Two-dimensional and M-mode echocardiogram with Doppler and color Doppler. Other Information Quality : Fair INDICATION Murmur Hx: TIA/CVA 2D DIMENSIONS RVDd2.5 (2.9-3.5cm)Left Atrium(2D)3.2 (1.6-4.0cm) IVSd1.2 (0.7-1.1cm)Aortic Root(2D)2.5 (2.0-3.7cm) LVDd4.1 (3.9-5.9cm)PWd1.0 (0.7-1.1cm) LVDs2.1 (2.5-4.0cm) Aortic Valve AO Peak GR.12.0mmHgAO Mean GR.8mmHg TEVIN (VTI)3.20cm2 Tricuspid Valve TR P. [id number] TR Peak Gr.[id number] LEFT VENTRICLE The left ventricle is normal size. There is mild concentric left ventricular hypertrophy. The left ve ntricular systolic function is normal and the ejection fraction is within normal range. The Ejection Fraction is 60-65%. There is normal LV segmental wall motion. Transmitral Doppler flow pattern is Gra de I-abnormal relaxation pattern. RIGHT VENTRICLE The right ventricle is normal size. The right ventricular systolic function is normal. ATRIA The left atrium size is normal. The right atrium size is normal. The interatrial septum is intact wit h no evidence for an atrial septal defect or patent foramen ovale as noted on 2-D or Doppler imaging. AORTIC VALVE The aortic valve is calcified but opens well. Doppler and Color Flow revealed no significant aortic r egurgitation. There is no significant aortic valvular stenosis. MITRAL VALVE The mitral valve is normal in structure and function. There is no evidence of mitral valve prolapse. There is no mitral valve stenosis. Doppler and Color Flow revealed no mitral valve regurgitation note d. TRICUSPID VALVE The tricuspid valve is normal in structure and function. Doppler and Color Flow revealed trace tricus pid regurgitation. The PA pressure was estimated at 22 mmHg. There is no tricuspid valve stenosis. PULMONIC VALVE The pulmonic valve is not well visualized. Doppler and Color Flow revealed trace pulmonic valvular re gurgitation. There is no pulmonic valvular stenosis. GREAT VESSELS The aortic root is normal in size. The ascending aorta is normal in size. The IVC is normal in size a nd collapses >50% with inspiration. PERICARDIAL EFFUSION There is no evidence of significant pericardial effusion. Critical Notification Critical Value: No <Conclusion> The left ventricle is normal size. The left ventricular systolic function is normal and the ejection fraction is within normal range. The Ejection Fraction is 60-65%. There is normal LV segmental wall motion. There is mild concentric left ventricular hypertrophy. Doppler and Color Flow revealed no significant aortic regurgitation. There is no significant aortic valvular stenosis. Doppler and Color Flow revealed no mitral valve regurgitation noted. Doppler and Color Flow revealed trace tricuspid regurgitation. The PA pressure was estimated at 22 mmHg. Doppler and Color Flow revealed trace pulmonic valvular regurgitation. Signed by : Tan Parra MD Electronically Approved : 08/17/2020 16:18:09
--- NOTE | 2020-08-17 17:52 | NUR ---
Pt is A&Ox4, cooperative and thankful for all care. Still having severe left sided weakness in both Upper and lower extremities. dysarthritic as well. Speech therapy and OT have evaluated pt today. Diet changed to dysphagia III and honey thick liquids. Pt has been up to commode x3 and to recliner x2 today for breakfast and lunch with moderate 2 person assist. pt is unable to to move left arm and leg to assist with transfers or ADLs. pt eager to get better. Throughout day pt has been moving left arm with assistance of right arm to keep mobility in arm. Pt agreed with POC to go to [facility] in [place] and eager to start therapy to gain mobility back. BP has been stable through shift(see chart).
[2020-08-17] MEDS: INSULIN GLARGINE SYRINGE. SQ SCH (20:00)
[2020-08-18] VITALS (9 sets, daily range): BP systolic 114–140; BP diastolic 55–78
--- NOTE | 2020-08-18 04:35 | NUR ---
Pt stated that she had a good day & is "ready to go get better at rehab!" Pt is A&Ox4, pleasant and cooperative with cares. Pt still with left facial droop & slurred speech. Pt's left arm is flaccid and has severe left leg weakness. Pt leans to the left when sitting on BSC or up in bed, will fall backwards if not supported by staff or gait belt. Pt ate pudding independently at bedtime, hates thicken liquids. Pt often on phone talking with family and had a belongings bag brought up for possible DC to Rehab in AM. Pt slept good during shift, likes sleeping on right side. Pt up to BSC x2 assist with gait belt. Pt refused bath this AM.
[2020-08-18] MEDS ORDERED: FLU VACC QS 2020-21(6MOS+)/PF 0.5 ML SYRINGE. VAX IM ONE (09:00)
--- NOTE | 2020-08-18 09:44 | PN ---
DATE: 08/17/2020 SUBJECTIVE: The patient is a 75-year-old female patient who was admitted to the Emergency Room with left-sided weakness. She was last known well the night before admission, she woke up around 4:00 a.m., 7 hours prior to arrival to the Emergency Room and she could not stand up due to left-sided weakness. She further realized that her left arm was also weaker than her right arm. She stated that she cannot walk at this time. She is able to lift her leg off the bed, but cannot maintain it. Her left arm has drift. She feels like she is able to talk without difficulty. She does not know if her face is symmetrical. She has never prior history of TIA or stroke and she was basically extensively investigated, was admitted and was found to have acute stroke, presented with dense left-sided hemiparesis and dysarthria. She has also multiple other medical problems including hypertension, diabetes and hyperlipidemia. She was seen in consultation by Dr. Thibodeaux, who recommended an echocardiogram as well as fasting lipid profile. PHYSICAL EXAMINATION: GENERAL: When I saw her this afternoon, she was resting slightly propped up in bed, in no apparent respiratory distress. She was awake, alert, responding appropriately. There was no pallor, jaundice, cyanosis or thyromegaly. No jugular venous distention. No lower limb edema. VITAL SIGNS: Her heart rate was 74, blood pressure was 146/72, temperature was 98, her respiratory rate was 21 and oxygen saturation was 96% on room air. HEAD, EYES, EARS, NOSE AND THROAT: Normocephalic, atraumatic. NECK: Supple. HEART: Normal first and second heart sounds. No gallop, rub or murmur. CHEST: Clear to auscultation. No crepitation or rhonchi. ABDOMEN: Distended, soft, nontender. NEUROLOGIC: She is awake, alert, responding appropriately. She does have left-sided facial droop and dense left-sided hemiplegia. Her intake and output were incompletely recorded. LABORATORY DATA: Her lab work showed a serum sodium 137, potassium 3.9, chloride 103, bicarbonate 20, anion gap of 14, BUN 19, creatinine 1.1, estimated GFR was 48 mL per minute. Her glucose was 262, calcium was 10.2. Total bilirubin, AST, ALT, alkaline phosphatase slightly elevated. Total protein 7.6, albumin 3.5. Her white cell count was 7300, hemoglobin 16, hematocrit 50, MCV 85 and platelet count 228,000. Her urinalysis was essentially unremarkable. ASSESSMENT: In summary, this is a 75-year-old female patient who presented with: 1. 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 2. She has multiple medical problems including: A. Hypertension. B. Type 2 diabetes mellitus. PLAN: We will check her fasting lipid profile and she will be transferred to [facility] tomorrow to continue the process of rehabilitation. She did have an echocardiogram done, which basically showed that her left ventricle is normal in size. Left ventricular systolic function is normal with an ejection fraction that is within normal range. Her ejection fraction was 60-65%. There is normal left ventricular segmental wall motion. There is mild concentric left ventricular hypertrophy. Doppler and color revealed no significant aortic regurgitation or aortic valvular stenosis. SMILEY ROMERO MD DR: ANA LAURA/richard JOB#: [id number] / [id number]
[2020-08-18] MEDS: ASPIRIN 325 MG TABLET PO SCH (10:15)
[2020-08-18] MEDS: CLOPIDOGREL BISULFATE 75 MG TABLET PO SCH (10:15)
[2020-08-18] MEDS: amLODIPine BESYLATE 10 MG TABLET PO SCH (10:16)
[2020-08-18] MEDS: ENOXAPARIN 40 MG/0.4 ML SYRINGE. SQ SCH (10:19)
[2020-08-18] MEDS: INSULIN LISPRO 300 UNITS/3 ML VIAL. SQ SCH ×2 (10:21→13:04)
--- NOTE | 2020-08-18 13:02 | PN ---
DATE: REFERRING PHYSICIAN: Dr. Bishop. SUBJECTIVE: The patient denies any new medical or neurological complaints. She eats and drinks well. She continued to have symptoms of acute stroke. She denies headaches, visual disturbances, chest pain, shortness of breath or palpitation, dysphagia or dizziness. OBJECTIVE: GENERAL: Well-developed, well-nourished female, not in any acute distress. VITAL SIGNS: Blood pressure 139/66, respiratory rate 14, pulse is 66 and regular, temperature 97.1, oxygen saturation 97% on room air. HEENT: Normocephalic, atraumatic, otherwise unremarkable. NECK: Supple. Negative for carotid bruit, lymphadenopathy or thyromegaly. LUNGS: Clear to A and P. CARDIOVASCULAR: Regular rate and rhythm, normal S1, S2. There is no S3, S4 or murmur. ABDOMEN: Soft. Bowel sounds positive. EXTREMITIES: Negative for cyanosis, clubbing or edema. NEUROLOGICAL EXAM: Mental Status: The patient is alert and oriented x 3. The speech is dysarthric, no language dysfunctions. Memory, judgment, and abstracting thinking are normal. The patient denies hallucination or delusion. Cranial nerves are intact except for left facial asymmetry of central type. Motor examination revealed dense left hemiparesis with slightly improved left foot. Sensory examination is intact. Deep tendon reflexes were asymmetric and hyperactive with positive Babinski on the left side. Gait not tested. DIAGNOSTIC DATA: Echocardiogram revealed left ventricle was normal, systolic function with ejection fraction of 60-65. Lipid profile, a normal triglyceride with high cholesterol and high LDL at 147. IMPRESSION: 1. Acute stroke, presented with left dense hemiparesis with including the face, arm and leg. 2. Multiple risk factor for stroke includes hypertension, hyperlipidemia, and diabetes mellitus. RECOMMENDATIONS: 1. Continue with current medical care. 2. Extensive rehabilitation and speech therapy. M Jon GOMEZ MD DR: ELYSE/richard JOB#: [id number] / [id number]
--- NOTE | 2020-08-18 13:40 | NUR ---
Pt being transferred to [facility] today. Patient is excited to get to rehab. Report was called to ALINA Vela. [facility] transport is here to supervisor opening and picking patient now. IV has been dc'd. Pt took all belongings with her.
--- NOTE | 2020-08-18 13:41 | DS ---
DATE OF DISCHARGE: HOSPITAL COURSE: The patient is a 75-year-old female patient who came to the Emergency Room with complaint of left-sided weakness and basically she was diagnosed with left-sided dense hemiplegia as well as dysarthria. She does have multiple other medical problems including hypertension, hyperlipidemia, type 2 diabetes mellitus and a decision was made obviously to transfer her to [facility] to continue the process of rehabilitation. PHYSICAL EXAMINATION: GENERAL: When I saw her today, she looked well and was clearly in no apparent respiratory distress. No pallor, jaundice, cyanosis, or thyromegaly. No jugular venous distention or limb edema. VITAL SIGNS: Her heart rate was 79, blood pressure was 140/78, temperature was 98.7, respiratory rate of 14, and oxygen saturation was 98% on room air. HEAD, EYES, EARS, NOSE AND THROAT: Showed normocephalic, atraumatic. NECK: Supple. HEART: Normal first and second heart sounds. No gallop or murmur. CHEST: Clear to auscultation. No crepitation or rhonchi. ABDOMEN: Distended, soft, nontender. NEUROLOGIC: She is awake, alert, responding appropriately. All her cranial nerves are intact. She has left-sided facial droop and she has dense left-sided hemiplegia involving both left upper and left lower extremities. She is mostly bedbound, chair bound. Her intake over the last 24 hours was 675, output was 600. LABORATORY DATA: As of this morning, her white cell count was 7300, hemoglobin 16, hematocrit 50, MCV 85 and platelet count 228,000. Her serum sodium was 141, potassium 3.9, chloride 106, bicarbonate 25, anion gap of 10, BUN 20, creatinine 1.1, estimated GFR was 48 mL per minute. Her glucose 149, calcium was 9.6. Her serum triglycerides were 142, total cholesterol was 222, LDL was 147, VLDL was 28, and HDL was 47; the ratio was 4. DISCHARGE MEDICATIONS: She was transferred to [facility] to continue on Lovenox 40 mg subcutaneously once a day, amlodipine 10 mg once a day, Plavix 75 mg once a day, aspirin 325 mg once a day, Lantus insulin 20 units at bedtime, clonidine TTS-3 one patch topically every 7 days. She is also on Humalog insulin 10 units before meals and ondansetron 4 mg every 6 hours and Tylenol 650 mg every 4 hours as needed. FINAL DISCHARGE DIAGNOSES: 1. 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 2. Dysarthria. 3. Left-sided facial droop. 4. The patient has multiple other medical problems including: A. Hypertension. B. Hyperlipidemia. C. Type 2 diabetes mellitus. SMILEY ROMERO MD DR: ANA LAURA/richard JOB#: [id number] / [id number]
[2020-08-18] MEDS ORDERED: ATORVASTATIN CALCIUM 20 MG TABLET PO SCH (21:00)
== END 2020-08-18 13:50 | DRG 65 ==
LOC: ER 10:21 → ICU 12:45
PROVIDERS: ADMIT Hospitalist; ATTEND Hospitalist
DX: I63.511 Cerebral infarction due to unspecified occlusion or stenosis of right middle cerebral artery (principal); G81.94 Hemiplegia, unspecified affecting left nondominant side; E11.9 Type 2 diabetes mellitus without complications; E78.00 Pure hypercholesterolemia, unspecified; E78.5 Hyperlipidemia, unspecified; I10 Essential (primary) hypertension; M19.90 Unspecified osteoarthritis, unspecified site; R47.1 Dysarthria and anarthria; R29.810 Facial weakness; Z82.3 Family history of stroke; Z82.49 Family history of ischemic heart disease and other diseases of the circulatory system; Z90.49 Acquired absence of other specified parts of digestive tract
CPT/HCPCS: 36415; 70450; 70496; 70498; 71045; 80048; 80053; 80061; 81001; 82947; 84484; 85025; 90471; 90686; 93005; 93306; J1650; J1815; J2405; Q9967; 92610; 97110; 99285-25

== ENCOUNTER → 2021-06-16 | Emergency (ER) | payer MEDICARE, OTHER ==
[~2021-06-16] VITALS: Ht 154.9 cm; Wt 67.7 kg
[~2021-06-16] MED LIST changes: +AMLO-187 PO; +INSU100I17 SQ; +INSU100V37 SQ; -LISI-334 PO; +LISI20TA18 PO
--- NOTE | 2021-06-16 21:18 | PHYS DOC ---
Past History Past Medical History: Diabetes, Hypertension (KRISTOPHER CARPENTER APRN) Past Surgical History: Appendectomy, Cholecystectomy (KRISTOPHER CARPENTER APRN) Alcohol Use: None Drug Use: None (KRISTOPHER CARPENTER APRN) Adult General HPI HPI Patient is a 76-year-old female who is brought to the emergency department by EMS who states patient's son called them related to her being unresponsive at home. Patient is a known diabetic. Bowling Alley Attendant reported blood sugar 34, gave patient oral glucose which brought blood sugar to 120, transported patient to the emergency department for evaluation. Patient reports she does not remember the paramedics coming to her home, reports she is diabetic, states she feels better now and is wanting to go home. Patient denies physical concerns or physical complaints. Patient does report a history of old CVA with left upper and lower extremity deficits, states she does live alone at home. States that she is currently waiting for placement at [facility]. Patient reports that she has taken her insulin doses for the day but has not eaten and believes this is why her blood sugar dropped today. Patient denies homicidal or suicidal ideation. (KRISTOPHER CARPENTER APRN) Review of Systems Review of Systems 14 body systems of review of systems have been reviewed. See HPI for pertinent positives and negative responses, otherwise all other systems are negative, nonpertinent or noncontributory. Constitutional: Negative except as outlined in HPI above. Skin: Negative except as outlined in HPI above. Eyes: Negative except as outlined in HPI above. HENT: Negative except as outlined in HPI above. Respiratory: Negative except as outlined in HPI above. Cardiovascular: Negative except as outlined in HPI above. GI: Negative except as outlined in HPI above. : Negative except as outlined in HPI above. Musculoskeletal: Negative except as outlined in HPI above. Integument: Negative except as outlined in HPI above. Neurologic: Negative except as outlined in HPI above. Endocrine: Negative except as outlined in HPI above. Lymphatic: Negative except as outlined in HPI above. Psychiatric: Negative except as outlined in HPI above. (KRISTOPHER CARPENTER APRN) Allergies Allergies Allergies Coded Allergies Type Severity Reaction Last Updated Verified No Known Drug Allergies 10/25/16 No (KRISTOPHER CARPENTER APRN) Physical Exam Physical Exam Constitutional: Well developed, well nourished, no acute distress, non-toxic appearance. 76-year-old in no apparent distress. HENT: Normocephalic, atraumatic. Eyes: Conjunctiva normal, no discharge. Neck: Normal range of motion, no stridor. Cardiovascular: No cyanosis appreciated, distal cap refill less than 2 seconds. Lungs & Thorax: Patient is in no respiratory distress, no audible adventitious lung sounds appreciated. Abdomen: Nontender, no abnormalities noted. Skin: Warm, dry, no erythema, no rash. Back: No tenderness, no deformities. Extremities: No tenderness, no cyanosis, no clubbing, ROM intact, no edema. Neurologic: Alert and oriented X 3, normal motor function, normal sensory function, no focal deficits noted. Psychologic: Affect normal, judgement normal, mood normal. (KRISTOPHER CARPENTER APRN) Current Patient Data Lab Results Laboratory Tests Test 06/16/21 20:42 06/16/21 21:01 06/16/21 21:38 Glucose (Fingerstick) 53 mg/dL 135 mg/dL White Blood Count 11.7 x10^3/uL Red Blood Count 5.71 x10^6/uL Hemoglobin 16.1 g/dL Hematocrit 48.7 % Mean Corpuscular Volume 85 fL Mean Corpuscular Hemoglobin 28 pg Mean Corpuscular Hemoglobin Concent 33 g/dL Red Cell Distribution Width 15.8 % Platelet Count 206 x10^3/uL Neutrophils (%) (Auto) 82 % Lymphocytes (%) (Auto) 10 % Monocytes (%) (Auto) 7 % Eosinophils (%) (Auto) 0 % Basophils (%) (Auto) 1 % Neutrophils # (Auto) 9.6 x10^3uL Lymphocytes # (Auto) 1.2 x10^3/uL Monocytes # (Auto) 0.8 x10^3/uL Eosinophils # (Auto) 0.0 x10^3/uL Basophils # (Auto) 0.1 x10^3/uL Sodium Level 141 mmol/L Potassium Level 3.9 mmol/L Chloride Level 105 mmol/L Carbon Dioxide Level 24 mmol/L Anion Gap 12 Blood Urea Nitrogen 20 mg/dL Creatinine 1.0 mg/dL Estimated GFR (Cockcroft-Gault) 54.2 Glucose Level 85 mg/dL Calcium Level 10.8 mg/dL Laboratory Tests Test 06/16/21 20:42 Glucose (Fingerstick) 53 mg/dL (70-99) L (KRISTOPHER CARPENTER APRN) EKG EKG [] (KRISTOPHER CARPENTER APRN) Radiology/Procedures Radiology/Procedures [] (KRISTOPHER CARPENTER APRN) Heart Score C/O Chest Pain: No Risk Factors: Risk Factors: DM, Current or recent (<one month) smoker, HTN, HLP, family history of CAD, obesity. Risk Scores: Risk Factors: DM, Current or recent (<one month) smoker, HTN, HLP, family history of CAD, obesity. (KRISTOPHER CARPENTER APRN) Course & Med Decision Making Course & Med Decision Making Pertinent Labs and Imaging studies reviewed. (See chart for details) 76-year-old female, vital signs reviewed, presents emergency department concerning hypoglycemic episode at home. Patient's physical examination unremarkable. Will obtain stat bedside blood sugar, feed patient, draw CBC, BMP, after period of time we will reexamined bedside glucose. Patient is amenable to this plan. Patient's bedside glucose 54, will feed patient. Patient's son is at bedside, states he will take patient home when she is released. Patient's CBC returned for slight dehydration, CMP within normal limits, bedside blood sugar after eating is 135, patient is alert and oriented, no apparent distress, still wishes to go home. Discussed dehydration with patient, patient states she does not drink as much water she should patient's son is at bedside states that he will ensure she increases her fluids. Patient's son feels comfortable taking his mother back home, there are plans for her to be admitted to [facility] for assisted living. Discussed with patient and p blasient's son strict return to ER precautions and concerns, follow-up with PCP soon, discussed insulin administrating and and diet. Patient and patient's son gave verbal understanding of discharge instructions and ED discharge planning. Discussed with the patient all findings and diagnostic testing as well as the need to follow-up with their primary care provider for further evaluation and treatment or return to the ED if any new or worsening symptoms. Strict return precautions were also discussed at length, the patient voiced understanding and agreement with the discharge planning. The patient was nontoxic in appearance, in no apparent distress, and hemodynamically stable at the time of disposition. (KRISTOPHER CARPENTER APRN) Course & Med Decision Making Did not see or evaluate patient. Did not discuss patient with MANUFACTURING ENGINEERING MANAGER. Agree with MANUFACTURING ENGINEERING MANAGER's work-up and disposition per note. (PANCHO DUCKWORTH MD) Dragon Disclaimer Dragon Disclaimer This electronic medical record was generated, in whole or in part, using a voice recognition dictation system. (KRISTOPHER CARPENTER APRN) Departure Departure: Impression: Primary Impression: Hypoglycemia associated with diabetes Disposition: HOME / SELF CARE / HOMELESS Condition: GOOD Referrals: JUAN JIMENEZ MD (PCP) Patient Instructions: Hypoglycemia (Low Blood Sugar) Additional Instructions: You were seen today in the emergency department for a hypoglycemic episode at home. Your transported to the emergency department via EMS in which they gave you oral glucose, you were fed today in the emergency department, labs were drawn and did not show concerning findings that would warrant admission to the hospital. However you had stated that you did not eat today after taking your insulin doses. This is most likely the main cause of your hypoglycemic episode. As we discussed at length, please ensure that you are eating the proper diet while taking your insulin as directed by your primary care physician. Please return to the emergency department for worsening symptoms or other concerns. Thank you for visiting our Emergency Department. It was a pleasure taking care of you today in the emergency department and we appreciate you trusting us with your care. If any additional problems come up don't hesitate to return to visit us. Please follow up with your primary care provider so they can plan additional care if needed and know about the problem that you had. If symptoms worsen come back to the Emergency Department. Any concerning symptoms that start such as chest pain, shortness of air, weakness or numbness on one side of the body, running high fevers or any other concerning symptoms return to the ER. KRISTOPHER CARPENTER APRN Jun 16, 2021 21:18 PANCHO DUCKWORTH MD Jun 16, 2021 22:11
[2021-06-16 21:24] VITALS: BP 162/66
[2021-06-16 21:28] LABS: BASO # 0.1 x10^3/uL (0.0-0.2); BASO % 1 % (0-3); EOS % 0 % (0-3); HEMATOCRIT 48.7 % (36.0-47.0); HEMOGLOBIN 16.1 g/dL (12.0-15.5); LYMPH # 1.2 x10^3/uL (1.0-4.8); LYMPH % 10 % (24-48); MEAN CORPUSCULAR HEMOGLOBIN 28 pg (25-35); MEAN CORPUSCULAR HGB CONC 33 g/dL (31-37); MEAN CORPUSCULAR VOLUME 85 fL (79-100); MONO # 0.8 x10^3/uL (0.0-1.1); MONO % 7 % (0-9); NEUT # 9.6 x10^3uL (1.8-7.7); NEUT % 82 % (31-73); PLATELET COUNT 206 x10^3/uL (140-400); RED BLOOD COUNT 5.71 x10^6/uL (3.50-5.40); RED CELL DISTRIBUTION WIDTH 15.8 % (11.5-14.5); WHITE BLOOD COUNT 11.7 x10^3/uL (4.0-11.0)
[2021-06-16 21:35] LABS: CALCIUM 10.8 mg/dL (8.5-10.1); GFR 54.2; POTASSIUM 3.9 mmol/L (3.5-5.1)
== END | disposition home or self-care (01) ==
LOC: ER 20:35
DX: E11.649 Type 2 diabetes mellitus with hypoglycemia without coma (principal); I10 Essential (primary) hypertension; E11.9 Type 2 diabetes mellitus without complications; Z90.49 Acquired absence of other specified parts of digestive tract
CPT/HCPCS: 36415; 80048; 82947; 85025; 99283-25

== ENCOUNTER 2021-06-28 11:30 | Emergency (ER) | payer MEDICARE, OTHER ==
[~2021-06-28] VITALS: Ht 154.9 cm; Wt 67.7 kg
[2021-06-28] MEDS ORDERED: DEXTROSE ORAL GEL 15 GM TUBE. ONE (11:41)
[2021-06-28] MEDS: DEXTROSE ORAL GEL 15 GM TUBE. PO ONE (11:45)
--- NOTE | 2021-06-28 11:46 | PHYS DOC ---
Past History Past Medical History: Diabetes, Hypertension Past Surgical History: No Surgical History Alcohol Use: None Drug Use: None Adult General Chief Complaint Chief Complaint: HYPOGLYCEMIA HPI HPI Patient is a 76-year-old female presenting via EMS for hypoglycemia. Patient presents from assisted living when a call was made out to EMS for altered mental status. Patient was on the phone with granddaughter and the conversation was concerning prompting granddaughter to contact assisted living to check on patient. On arrival, patient's fingerstick glucose was found to be 26. She was given 15 g oral glucose gel and immediately transferred to our facility for evaluation. On arrival, patient's mentation back at baseline, AAO x3. She denies any major changes in health or medications. She admits to taking long- acting insulin at night in addition to mealtime short acting insulin. She has been compliant with all medications. She reports receiving her long-acting insulin last night and taking appropriate amount of short acting insulin this morning after eating a bowl of cereal. She does admit she did not eat as much cereal as she bolused for. There was no seizure-like activity, falls or other trauma per patient and assisted living facility. Review of Systems Review of Systems Fourteen body systems of review of systems have been reviewed. See HPI for pertinent positives and negative responses, other haskins all other systems are negative, non-pertinent or non-contributory Allergies Allergies Allergies Coded Allergies Type Severity Reaction Last Updated Verified No Known Drug Allergies 06/16/21 No Physical Exam Physical Exam Constitutional: Well developed, age-appropriate, appears unkept and unhygienic overall HENT: Normocephalic, atraumatic, bilateral external ears normal, oropharynx dry with poor hygiene, no oral exudates, nose normal. Eyes: PERRLA, EOMI, conjunctiva normal, no discharge. Neck: Normal range of motion, no tenderness, supple, no stridor. Cardiovascular: Heart rate regular, sinus rhythm, no murmurs rubs or gallops Lungs & Thorax: Bilateral breath sounds clear to auscultation Abdomen: Bowel sounds normal, soft, no tenderness, no masses, no pulsatile masses. Nonsurgical abdomen, no peritoneal signs Skin: Warm, dry, no erythema, no rash. Back: No tenderness, no CVA tenderness. Extremities: No tenderness, no cyanosis, no clubbing, ROM intact, no edema. Neurologic: Alert and oriented X 3, motor and sensory function at baseline with chronic motor and neuro deficits to left face, upper extremity and lower extremity from prior stroke. Psychologic: Affect normal, judgement normal, mood normal. Current Patient Data Vital Signs Vital Signs Date Time Temp Pulse Resp B/P (MAP) Pulse Ox O2 Delivery O2 Flow Rate FiO2 06/28/21 11:33 98.7 53 16 150/73 (98) 98 Room Air Vital Signs Date Time Temp Pulse Resp B/P (MAP) Pulse Ox O2 Delivery O2 Flow Rate FiO2 06/28/21 11:33 98.7 53 16 150/73 (98) 98 Room Air Lab Results Laboratory Tests Test 06/28/21 12:37 06/28/21 13:02 Glucose (Fingerstick) 128 mg/dL 128 mg/dL Current Medications Medications (Trade) Dose Ordered Sig/Braden Route PRN Reason Start Time Stop Time Status Last Admin Dose Admin Glucose (Insta-Glucose) 15 gm STK-MED ONCE .ROUTE 06/28/21 11:41 06/28/21 11:41 DC Glucose (Insta-Glucose) 15 gm 1X ONCE PO 06/28/21 11:45 06/28/21 11:53 DC 06/28/21 11:45 EKG EKG EKG ordered and interpreted by myself at 1303 hrs. as sinus rhythm at 50 bpm, unremarkable intervals, no axis deviation, no acute ischemic findings, no STEMI Radiology/Procedures Radiology/Procedures [] Heart Score C/O Chest Pain: No Risk Factors: Risk Factors: DM, Current or recent (<one month) smoker, HTN, HLP, family history of CAD, obesity. Risk Scores: Risk Factors: DM, Current or recent (<one month) smoker, HTN, HLP, family hi story of CAD, obesity. Course & Med Decision Making Course & Med Decision Making ABCs unremarkable. I disclosed entirety of ER findings and discussed most likely diagnosis of hypoglycemia likely due to not eating enough to support bolus of mealtime insulin. Other diagnoses were discussed with patient such as hypoglycemia of other more concerning etiologies such as infection, ACS etc. but all deemed less likely causes of patient's presentation. I recommended to pursue further ER work-up such as baseline labs but patient deferred. Patient monitored while in ER with several [id number] glucose checks that were pleasing after x2 doses of 15 g oral glucose gel and food was administered. Plan of care discussed at length with need for close outpatient follow-up to review today's ER visit stressed. Strict return precautions were also discussed at length with good understanding verbalized by patient. Patient voiced understanding and agreement with the plan. Patient knows to come back for repeat evaluation if concerning signs or symptoms present prior to outpatient follow- up. Hemodynamically stable, ambulatory and well-appearing at time of disposition. Dragon Disclaimer Dragon Disclaimer This electronic medical record was generated, in whole or in part, using a voice recognition dictation system. Departure Departure: Impression: Primary Impression: Hypoglycemia associated with diabetes Disposition: HOME / SELF CARE / HOMELESS Condition: STABLE Referrals: JUAN JIMENEZ MD (PCP) Additional Instructions: You were seen for hypoglycemia. You need to continue taking your insulin/diabetes medications as prescribed and follow up with your primary care doctor as soon as possible. It is important for good glycemic control to reduce the risks of acute and chronic medical problems. Your event today was most likely due to not eating enough cereal based on the amount of insulin you gave yourself. Return to the ED if you develop any abdominal pain, vomiting, cough, chest pain, fever, or any other new or concerning symptoms. PITER NORWOOD DO Jun 28, 2021 11:46
[2021-06-28 13:19] VITALS: BP 147/70
--- NOTE | 2021-06-28 15:45 | EKG ---
[address] [address] Test Date: 2021-06-28 Test Time: 12:58:15 Pat Name: KASHMIR RAPHAEL Department: Room: Gender: F Manager User Interface: JU : 1945 Requested By: PITER NORWOOD Order Number: [id number] Reading MD: Measurements Intervals [place] Rate: 50 P: 58 RI: 192 QRS: 30 QRSD: 80 T: 20 QT: 462 QTc: 424 Interpretive Statements SINUS RHYTHM NORMAL ECG RI6.02 No previous ECG available for comparison
== END 2021-06-28 13:20 | disposition home or self-care (01) ==
LOC: ER 11:30
DX: E11.649 Type 2 diabetes mellitus with hypoglycemia without coma (principal); I10 Essential (primary) hypertension
CPT/HCPCS: 82947; 93005; 99284